=== PATIENT | female | born 1960 | race Caucasian/White ===

== ENCOUNTER 2020-01-28 23:12 | Emergency (ER) | payer OTHER ==
[~2020-01-28] VITALS: Ht 157.5 cm; Wt 95.3 kg
[2020-01-28 23:50] LABS: ABSOLUTE BASOPHILS 0.1 thou/uL (0.0-0.2); ABSOLUTE EOSINOPHILS 0.3 thou/uL (0.0-0.7); ABSOLUTE LYMPHOCYTES 3.8 thou/uL (0.8-5.3); ABSOLUTE MONOCYTES 0.6 thou/uL (0.0-1.2); ABSOLUTE NEUTROPHILS 4.6 thou/uL (1.6-8.1); BASOPHILS 1.3 %; EOSINOPHILS 2.8 %; HEMOGLOBIN 14.4 gm/dL (12.0-15.0); LYMPHOCYTES 40.5 %; MCH 29.6 pg (26.0-34.0); MCHC 34.2 g/dL (28.0-37.0); MCV 86.6 fL (80.0-100.0); MONOCYTES 6.2 %; MPV 9.1 fl. (7.2-11.1); NUCLEATED RBCS 0 /100WBC; PLATELET COUNT* 294 thou/uL (150-400); POLYS 49.2 %; RBC 4.85 mil/uL (4.20-5.00); RDW-CV 13.6 % (10.5-14.5); WBC 9.4 thou/uL (4.0-11.0)
[2020-01-28 23:56] LABS: CALCIUM 8.7 mg/dL (8.5-10.1); CREATININE 1.1 mg/dL (0.6-1.3); POTASSIUM 3.5 mmol/L (3.5-5.1)
[2020-01-29 00:01] LABS: ALBUMIN 3.9 g/dL (3.4-5.0); TOTAL BILIRUBIN 0.3 mg/dL (<0.1-1.0)
[2020-01-29 00:10] LABS: URINE BILIRUBIN NEGATIVE (Negative); URINE BLOOD 3+ (Negative); URINE CLARITY CLEAR; URINE COLOR YELLOW; URINE GLUCOSE-RANDOM NEGATIVE (Negative); URINE KETONES NEGATIVE (Negative); URINE LEUKOCYTES-REFLEX NEGATIVE (Negative); URINE NITRITE-REFLEX NEGATIVE (Negative); URINE PROTEIN 1+ (Negative); URINE SPECIFIC GRAVITY >= 1.030 (1.005-1.030); URINE UROBILINOGEN 0.2 E.U./dl (0.2-1.0)
[2020-01-29 00:22] LABS: BACTERIA-REFLEX >30 Many /HPF (None Seen); CASTS None Seen /LPF (None Seen); CRYSTALS None Seen /LPF (None Seen); MUCUS 4-6 Moderate strn/LPF (None Seen); SQUAMOUS 0-3 Few /LPF (0-3); URINE RBC >20 Many /HPF (0-2); URINE WBC-REFLEX None Seen /HPF (0-5)
[2020-01-29 02:11] VITALS: BP 151/80
--- NOTE | 2020-01-29 12:17 | EKG ---
[place] [address] ELECTROCARDIOGRAM REPORT Name: JERONIMO HESS Room: [facility]#: [id number] Admission: 01/28/20 Attend Phys: Discharge: 01/29/20 Date of : 62 Date of Service: 01/28/202330 Report #: [id number] THIS REPORT FOR: //name// [facility] ED Test Date: 2020-01-28 Test Time: 23:31:53 Pat Name: JERONIMO HESS Department: Room: Gender: Occupational Health Physician: : [id number] Requested By: Chandni Dyson Order Number: [id number] Daniel MD: Paulo Silverio Measurements Intervals [place] Rate: 83 P: 69 UT: 152 QRS: 12 QRSD: 92 T: 11 QT: 372 QTc: 437 Interpretive Statements Sinus rhythm Low voltage, precordial leads No previous ECG available for comparison Electronically Signed On 01-29-2020 12:17:01 CDT by Paulo Silverio [email or web address] <ELECTRONICALLY SIGNED> By: Paulo Silverio MD, [facility] 01/29/20 1217 30 30 Paulo Silverio MD, FACC /EPI
== END 2020-01-29 02:13 | disposition short-term general hospital (02) ==
LOC: M.ERS 23:12
PROVIDERS: Emergency Medicine
DX: N20.1 Calculus of ureter (principal); K21.9 Gastro-esophageal reflux disease without esophagitis; Z88.0 Allergy status to penicillin